=== PATIENT | male | born 1940 | race Caucasian/White ===

== ENCOUNTER → 2020-04-12 | Outpatient (CLI) | payer MEDICARE ==
[~2020-04-12] MED LIST: ACET-2065 PO; ACET650S12 PR; BISA10SU4 PR; DEXA4TAB PO; ENOX40SY4 SQ; HYDR-3240 PO; LEVE500T53 PO; LEVE500T8 PO; MAGN400O7 PO; POLY17PO5 PO; SENN-52 PO
== END | disposition home or self-care (01) ==
LOC: PETCFH 08:40
PROVIDERS: ATTEND Internal Medicine Hematology & Oncology
DX: C85.10 Unspecified B-cell lymphoma, unspecified site (principal)
CPT/HCPCS: 78815; A9552

== ENCOUNTER → 2020-04-25 | Outpatient (CLI) | payer MEDICARE | END | disposition home or self-care (01) | LOC: ROC 07:25 | PROVIDERS: ATTEND Radiology Radiation Oncology | DX: C85.81 Other specified types of non-Hodgkin lymphoma, lymph nodes of head, face, and neck (principal) | CPT/HCPCS: 99214; G0463 ==

== ENCOUNTER 2020-05-01 15:17 | Emergency (ER) | payer MEDICARE ==
[~2020-05-01] VITALS: Ht 180.3 cm; Wt 66.0 kg
[2020-05-01 16:04] LABS: MICROSCOPIC NOT IND
[2020-05-01 16:05] LABS: BASOPHILS # (AUTO) 0.05 x10^3/uL (0-0.1); BASOPHILS % (AUTO) 1 % (0-1); EOSINOPHILS % (AUTO) 2 % (1-7); LYMPHOCYTES # (AUTO) 0.87 x10^3/uL (1-3.4); LYMPHOCYTES % (AUTO) 16 % (22-44); MD NO; MEAN CORPUSCULAR HEMOGLOBIN 29.7 pg (27.5-34.5); MEAN CORPUSCULAR HGB CONC 32.2 g/dL (33.2-36.2); MEAN CORPUSCULAR VOLUME 92.4 fL (81-97); MEAN PLATELET VOLUME 8.7 fL (7.4-10.4); MONOCYTES # (AUTO) 0.57 x10^3/uL (0.2-0.8); MONOCYTES % (AUTO) 10 % (2-9); NEUTROPHILS % (AUTO) 72 % (42-75); PLATELET COUNT 238 x10^3/uL (130-400); RED BLOOD COUNT 4.33 x10^6/uL (4.38-5.82); RED CELL DISTRIBUTION WIDTH 14.4 % (9.4-14.8)
[2020-05-01 16:12] LABS: ALBUMIN 3.5 g/dL (3.4-5.0); ANION GAP 5 mmol/L (5-15); CALCIUM 9.8 mg/dL (8.5-10.1); CHLORIDE 108 mmol/L (98-107); CREATININE 0.95 mg/dL (0.7-1.3)
--- NOTE | 2020-05-01 16:12 | NUR ---
bladder scan post void 80mL, ED provider notified, no further orders at this time.
[2020-05-01 16:28] VITALS: BP 136/73
--- NOTE | 2020-05-01 17:30 | NUR ---
Patient/Caregiver given discharge instructions and they have confirmed that they understand the instructions. Patient ambulatory with steady gait. Pt refused to have d/c vitals taken. pt d/c with prescription and verbalized d/c instructions.
== END 2020-05-01 17:34 | disposition home or self-care (01) ==
LOC: ED 17:28
DX: N40.1 Benign prostatic hyperplasia with lower urinary tract symptoms (principal); R33.8 Other retention of urine
CPT/HCPCS: 36415; 80048; 81003; 82040; 85025; 99284